=== PATIENT | male | born 1960 | race Caucasian/White ===

== ENCOUNTER 2018-01-18 13:50 | Inpatient (IN) | payer OTHER ==
[~2018-01-18] VITALS: Ht 180.3 cm; Wt 108.9 kg
[2018-03-15 13:44] LABS: BASOPHILS # (AUTO) 0.1 X10'3 (0-0.2); BASOPHILS % (AUTO) 0.9 % (0-1); EOSINOPHILS # (AUTO) 0.1 X10'3 (0-0.9); EOSINOPHILS % (AUTO) 1.7 % (0-6); LYMPHOCYTES # (AUTO) 2.2 X10'3 (1.1-4.8); LYMPHOCYTES % (AUTO) 26.9 % (21-51); MEAN CORPUSCULAR HGB CONC 35.1 % (33.0-36.5); MEAN CORPUSCULAR VOLUME 93.9 FL (78-98); MEAN PLATELET VOLUME 7.1 FL (7.4-10.4); MONOCYTES # (AUTO) 0.9 X10'3 (0-0.9); MONOCYTES % (AUTO) 10.6 % (2-12); NEUTROPHILS # (AUTO) 4.9 X10'3 (1.8-7.7); NEUTROPHILS % (AUTO) 59.9 % (42-75); PRE OP HEMATOCRIT 44.7 % (42.0-52.0); PRE OP HEMOGLOBIN 15.7 g/dL (14.0-17.9); PRE OP PLATELET COUNT 289 X10'3 (140-440); RED BLOOD COUNT 4.76 X10'6 (4.70-6.10); RED CELL DISTRIBUTION WIDTH 13.1 % (11.5-14.5)
[2018-03-15 13:53] LABS: ALBUMIN 3.8 G/DL (3.4-5.0); ALKALINE PHOSPHATASE 87 IU/L (46-116); BLOOD UREA NITROGEN 16 MG/DL (7-18); BUN/CREATININE RATIO 12.8 (5.4-32.0); CALCIUM 9.5 MG/DL (8.5-10.1); CHLORIDE 105 MMOL/L (99-107); CREATININE 1.25 MG/DL (0.60-1.10); PRE OP ALT 51 U/L (30-65); PRE OP ANION GAP 11 (8-16); PRE OP AST 36 U/L (10-37); PRE OP BILIRUB, TOTAL 0.4 MG/DL (0.0-1.0); PRE OP GLUCOSE 162 MG/DL (70-104); PRE OP POTASSIUM 3.4 MMOL/L (3.4-5.1); PRE OP SODIUM 143 MMOL/L (135-145); TOTAL PROTEIN 7.8 G/DL (6.4-8.2); eGFR 60 ML/MIN
[2018-03-15] MEDS ORDERED: ASPI81TA52 PO (15:17)
[2018-03-22] MEDS ORDERED: LOSA1TAB39 PO (13:43)
[2018-03-23] VITALS (14 sets, daily range): BP systolic 94–131; BP diastolic 55–81
[2018-03-23] MEDS ORDERED: ringers solution, lacted 1,000 ML IV SCH ×2 (05:00→09:53)
[2018-03-23] MEDS ORDERED: vancomycin inj 1,500 MG in normal saline 300ml IV soln IV ONE (05:30)
[2018-03-23] MEDS ORDERED: famotidine 20mg tablet PO ONE (05:30)
[2018-03-23] MEDS ORDERED: ceFAZolin inj. 2,000 MG in dextrose 5%-water 100 ML IV ONE (05:30)
[2018-03-23] MEDS ORDERED: LIDOcaine 1% (10mg/ml) 2ml vial ONE (05:36)
[2018-03-23] MEDS ORDERED: ketorolac trometh. 30mg/ml inj. ONE (07:01)
[2018-03-23] MEDS ORDERED: ROPIVAcaine 0.5% (5mg/ml) 30ml vial ONE (07:01)
[2018-03-23] MEDS ORDERED: vancomycin 1,000mg inj ONE (07:01)
[2018-03-23] MEDS ORDERED: tranexamic acid inj. 1,100 MG in normal saline 100ml IV soln 89 ML IV ONE ×2 (08:00→09:00)
[2018-03-23] MEDS ORDERED: midazolam 2 mg/2 ml injection ONE (08:48)
[2018-03-23] MEDS ORDERED: fentaNYL/PF 50MCG/1 ML 2ML syringe ONE (08:48)
[2018-03-23] MEDS ORDERED: propofol inj 20 ML IV ONE ×2 (08:52→10:06)
[2018-03-23] MEDS ORDERED: LIDOcaine 2% (20mg/ml) 5ml vial ONE (08:52)
[2018-03-23] MEDS ORDERED: sevoflurane 250ml liquid IH ONE (09:06)
[2018-03-23] MEDS ORDERED: ondansetron/PF 4mg/2ml inj IV PRN ×2 (09:55→11:40)
[2018-03-23] MEDS ORDERED: fentaNYL/PF 50MCG/1 ML 2ML syringe IV PRN ×2 (09:55)
[2018-03-23] MEDS ORDERED: morphine 4 MG/ML inj SYRINge IV PRN ×2 (09:55)
[2018-03-23] MEDS ORDERED: hydrALAZINE 20mg/ml inj. IV PRN (09:55)
[2018-03-23] MEDS ORDERED: labetalol 20mg/4ml (5mg/ml) syringe IV PRN (09:55)
[2018-03-23] MEDS ORDERED: morphine 10mg/ml inj. ONE (11:15)
[2018-03-23] MEDS ORDERED: potassium cl 20mEq in 1/2 NS 1,000 ML IV SCH (11:37)
[2018-03-23] MEDS ORDERED: acetaminophen 325mg tablet PO PRN (11:40)
[2018-03-23] MEDS ORDERED: oxyCODONE IR 5mg (immed. release) tablet PO PRN ×2 (11:40)
[2018-03-23] MEDS ORDERED: diphenhydrAMINE 25mg capsule PO PRN ×2 (11:40)
[2018-03-23] MEDS ORDERED: HYDROmorphone 1 mg/ml syringe IV PRN ×2 (11:40)
[2018-03-23] MEDS ORDERED: bisacodyl 10mg suppository rectal RC PRN (11:40)
[2018-03-23] MEDS ORDERED: magnesium hydroxide 30ml (MOM) UD suspension PO PRN (11:40)
[2018-03-23] MEDS ORDERED: gabapentin 300mg capsule PO SCH (13:00)
[2018-03-23] MEDS ORDERED: acetaminophen 325mg tablet PO SCH (14:00)
[2018-03-23] MEDS ORDERED: ketorolac tromethamine 15mg/ml inj. IV SCH (14:00)
[2018-03-23] MEDS ORDERED: tranexamic acid inj. 1,100 MG in normal saline 100ml IV soln 100 ML IV ONE (15:00)
[2018-03-23] MEDS ORDERED: ceFAZolin 1GM/D5W- ADD-VANTAGE 50 ML IV SCH (16:00)
[2018-03-23] MEDS ORDERED: vancomycin/NS 1 GM ADD-VANTAGE 250 ML IV SCH (20:00)
[2018-03-23] MEDS ORDERED: sennosides 8.6mg tablet PO SCH (21:00)
[2018-03-24] MEDS ORDERED: aspirin 81mg tablet.DR PO SCH (08:00)
[2018-03-24] MEDS ORDERED: aspirin 325mg tablet PO SCH (08:30)
[2018-03-24] MEDS ORDERED: celeCOXIB 100mg capsule PO SCH (20:00)
[2018-03-25] MEDS ORDERED: acetaminophen 325mg tablet PO PRN (11:40)
== END 2018-03-23 15:20 | disposition home or self-care (01) | DRG 483 ==
LOC: PAS IN 03-23 05:22 → EDSTATUS 03-23 07:30 → ORTHO 4S 03-23 12:23
PROVIDERS: ADMIT Orthopaedic Surgery; ATTEND Orthopaedic Surgery
PROC: 0LS30ZZ Reposition Right Upper Arm Tendon, Open Approach (ICD-10-PCS; 2018-03-23)
PROC: 3E0T3BZ Introduction of Anesthetic Agent into Peripheral Nerves and Plexi, Percutaneous Approach (ICD-10-PCS; 2018-03-23)
PROC: 0RRJ00Z Replacement of Right Shoulder Joint with Reverse Ball and Socket Synthetic Substitute, Open Approach (ICD-10-PCS; principal; 2018-03-23 09:06)
DX: M19.011 Primary osteoarthritis, right shoulder (principal); I10 Essential (primary) hypertension; K21.9 Gastro-esophageal reflux disease without esophagitis; M75.121 Complete rotator cuff tear or rupture of right shoulder, not specified as traumatic; M75.21 Bicipital tendinitis, right shoulder; Z79.899 Other long term (current) drug therapy
CPT/HCPCS: 36415; 80053; 82948; 85025; 87070; A4565; A7000; J0690; J1885; J2001; J2250; J2270; J2704; J2795; J3010; J3370; J3490; J7030; J7040; J7060; J7120

== ENCOUNTER 2025-08-08 15:00 | Outpatient (CLI) | payer MEDICARE, MEDICAID ==
[~2025-08-08 15:00] MED LIST: ASPI81TA52 PO; LOSA1TAB39 PO
--- NOTE | 2025-08-08 16:11 | RADIOLOGY REPORT ---
EXAM: CT CT CHEST LOW DOSE INDICATION: ENCOUNTER FOR OTHER SPECIFIED SPECIAL EXAMINATIONS TECHNIQUE: Low-dose noncontrast CT of the lungs have been obtained. All CT scans at this facility use dose modulation, iterative reconstruction, and/or weight based dosing when appropriate to reduce radiation dose to as low as reasonably achievable. COMPARISON: None FINDINGS: LOWER NECK: Unremarkable LYMPH NODES/MEDIASTINUM: No abnormal lymph nodes by CT size criteria CARDIOVASCULAR: Normal cardiac size. No pericardial effusion. No aneurysmal dilatation of the great vessels. Coronary artery calcifications. UPPER ABDOMEN: Limited evaluation secondary to photon starvation. Unremarkable. MUSCULOSKELETAL: No acute fracture or aggressive focal osseous lesion. Right shoulder arthroplasty. CHEST WALL: Unremarkable. LUNG/PLEURAL SPACE: No consolidation, suspicious focal airspace opacity, or suspicious nodules. No pleural effusion or pneumothorax. Biapical pleural- parenchymal scarring. pleural-parenchymal scarring. IMPRESSION: 1. No CT evidence of an acute intrathoracic process. LUNG-RADS: 1- Negative RECOMMENDATION: Annual low dose lung screening CT is recommended for 15 years after smoking cessation or until age 77. CITATION: Lung cancer screening categorization and recommendations per [employer] Lung-RADS Version 1.0 (http://www.acr.org/Quality- Safety/Resources/LungRADS).
[2025-08-12] MEDS ORDERED: METO-411 PO (16:07)
== END 2025-08-08 23:59 | disposition home or self-care (01) ==
LOC: RAD 15:00
PROVIDERS: ATTEND Nurse Practitioner Family
DX: Z12.2 Encounter for screening for malignant neoplasm of respiratory organs (principal); Z01.89 Encounter for other specified special examinations; I25.10 Atherosclerotic heart disease of native coronary artery without angina pectoris; J98.4 Other disorders of lung; Z96.611 Presence of right artificial shoulder joint; Z87.891 Personal history of nicotine dependence
CPT/HCPCS: 71271

== ENCOUNTER 2025-08-19 10:06 | Day surgery (SDC) | payer MEDICARE, MEDICAID ==
--- NOTE | 2025-08-12 14:36 | ELECTROCARDIOGRAPH REPORT ---
[facility] Test Date: 2025-08-12 Test Time: 15:34:34 Pat Name: TERESITA GILES Department: [facility]-PRE-OP Patient ID: [id number] Room: Gender: M Cath Lab Radiological Technologist: jorge a : 1960 Requested By: DENISE MARSHALL Order Number: [id number] Reading MD: Dr. JOSEPH Siegel Measurements Intervals Crystal Rate: 62 P: 30 AK: 141 QRS: 54 QRSD: 119 T: 56 QT: 434 QTc: 441 Interpretive Statements Sinus rhythm Nonspecific intraventricular conduction delay Electronically Signed On 08-12-2025 18:03:[address] JOSEPH Siegel Please click the below link to view image of tracing.
[2025-08-12 14:44] LABS: MEAN PLATELET VOLUME 7.1 FL (7.4-10.4); PRE OP HEMATOCRIT 42.9 % (42.0-52.0); PRE OP HEMOGLOBIN 14.9 g/dL (14.0-17.9); PRE OP PLATELET COUNT 286 X10'3 (140-440); PRE OP WHITE BLOOD COUNT 9.2 10'3 (4.8-10.8); RED CELL DISTRIBUTION WIDTH 13.7 % (11.5-14.5)
[2025-08-12 15:00] LABS: CREATININE 1.02 MG/DL (0.60-1.10); PRE OP ALT 47 U/L (30-65); PRE OP ANION GAP 8 (8-16); PRE OP AST 29 U/L (10-37); PRE OP BILIRUB, TOTAL 0.3 MG/DL (0.0-1.0); PRE OP GLUCOSE 105 MG/DL (70-104); PRE OP POTASSIUM 3.8 MMOL/L (3.4-5.1); PRE OP SODIUM 142 MMOL/L (135-145); TOTAL CARBON DIOXIDE 28.7 MMOL/L (24-32); eGFR 73 ML/MIN
[2025-08-19] VITALS (12 sets, daily range): BP systolic 128–148; BP diastolic 67–89; PULSE 58–89; RESP 12–16; TEMP 96.8; O2SAT 97–100
[~2025-08-19] VITALS: Ht 180.3 cm; Wt 104.2 kg
[2025-08-19] MEDS: ceFAZolin 2gm/dext,iso 50mL 50 ML IV ONE (05:30)
[~2025-08-19 10:06] MED LIST changes: -ASPI81TA52 PO; +DOCUMENT DATE & TIME OF BETA-BLOCKER PO ONE; +METO-411 PO
[2025-08-19] MEDS: ringers solution, lacted 1,000 ML IV SCH (10:29)
[2025-08-19] MEDS ORDERED: BUPIVAcaine 2.5mg/ml inj 50ml vial (contains preservative) ONE (13:14)
[2025-08-19] MEDS ORDERED: LIDOcaine 1% 30ml preserv. free vial ONE (13:15)
[2025-08-19] MEDS ORDERED: midazolam 1 mg/ML 2ml injection ONE (13:16)
[2025-08-19] MEDS ORDERED: HYDROcodone/acetaminophen 5mg/325mg tablet PO PRN (13:20)
[2025-08-19] MEDS ORDERED: morphine 4 MG/ML inj SYRINge IV PRN (13:25)
[2025-08-19] MEDS ORDERED: HYDROmorphone/PF 0.2 MG/ML SYRINGE IV PRN ×2 (13:25)
[2025-08-19] MEDS ORDERED: ondansetron/PF 4mg/2ml inj IV PRN (13:25)
[2025-08-19] MEDS ORDERED: hydrALAZINE 20mg/ml inj. IV PRN (13:25)
[2025-08-19] MEDS ORDERED: labetalol 20mg/4ml (5mg/ml) syringe IV PRN (13:25)
[2025-08-19] MEDS ORDERED: ringers solution, lacted 1,000 ML IV SCH (13:25)
[2025-08-19] MEDS ORDERED: fentaNYL /PF 50mcg/ml 5ml ampule ONE (13:38)
[2025-08-19] MEDS ORDERED: dexamethasone sod phosphate 4mg/ml inj. ONE (13:43)
[2025-08-19] MEDS ORDERED: propofol inj 20 ML IV ONE (13:44)
[2025-08-19] MEDS ORDERED: rocuronium 10mg/ml inj IV ONE (13:44)
[2025-08-19] MEDS ORDERED: LIDOcaine 2% (20mg/ml) 5ml vial ONE (13:44)
[2025-08-19] MEDS ORDERED: ondansetron/PF 4mg/2ml inj ONE (13:44)
[2025-08-19] MEDS: LIDOcaine 1% 30ml preserv. free vial IJ ONE (13:45)
[2025-08-19] MEDS: BUPIVAcaine/PF 2.5 mg/ml (0.25%) 30ml vial IJ ONE (13:45)
[2025-08-19] MEDS: acetaminophen 1,000mg/100ml IV 100 ML IV PRN (15:16)
[2025-08-19] MEDS ORDERED: oxyCODONE/APAP 5-325mg tablet PO PRN (15:30)
--- NOTE | 2025-08-19 15:33 | OPERATIVE REPORT ---
Operative Report Providers to CC CC: BRAD MARSHALL ~ Date of Procedure: Aug 19, 2025 Pre-Operative Diagnosis: Umbilical hernia, right inguinal hernia Post-Operative Diagnosis SAME as PRE-Op Procedure Performed 1 cm umbilical hernia repair Robotic assisted, laparoscopic right inguinal hernia repair with mesh Surgeon: Jaylon Marshall MD FACS Reflexologist None Anesthesiologist: Angelo Josehp Type of Anesthesia: General Findings: Very, very, very large indirect right inguinal hernia 1 cm umbilical hernia Thick band from the right medial umbilical fold to a loop of intestine that was herniated into the right inguinal canal (likely adhesive band, however, 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 Description of Procedure: Patient was brought to the operating room and identified by the nursing staff and the attending physician. Patient was placed supine and general anesthesia was induced. Patient's abdomen was prepped and draped in standard sterile fashion. Preoperative antibiotics were given. Supraumbilical incision was made to allow for standard Whitehead entry technique. During dissection, a 1 cm umbilical hernia was encountered. Contents were reduced and the fascial edges freshened. Defect was used for Whitehead port placement. Laparoscope was inserted after insufflation. Bilateral, 8.5 mm robotic trochars were placed under laparoscopic guidance following administration of local anesthetic. The da Radha robotic arm was docked to the patient and instruments placed intra-abdominally under laparoscopic visualization. The left hemipelvis was examined and showed no evidence of left inguinal hernia. There was what appeared to be a thick fibrous adhesive band attached to a loop of intestine within the hernia sac. This was anchored to the abdominal wall, right at the medial umbilical fold on the right. This appeared to be a very thick adhesive band, however, when it was divided near the medial umbilical fold, it appeared almost tubular. A clip was placed on the anterior abdominal wall and a Humalog clip was placed proximal to the attachment on the small intestine. Adhesive band was retrieved and marked as urachal remnant, however, it is most likely given the anatomy and adhesive band. This was sent for pathological confirmation. Attention was then turned to the right inguinal hernia. This was quite large. Preperitoneal flap was created and carried down to the symphysis pubis. The retropubic space of [place] was developed and the bladder swept medially. Dissection was carried out laterally until an indirect inguinal hernia sac was identified. This was very, very large in size, extending deep into the right hemiscrotum. Hernia sac was completely mobilized and reduced. Peritoneum was completely dissected away from the cord structures The critical view of the myopectineal orifice was achieved. Dissection was carried out laterally to allow space for mesh deployment. An extra-large right Dextile mesh and suture was passed intra-abdominally. Mesh was laid in the preperitoneal space covering both indirect, direct, and potential femoral and obturator hernias. Mesh laid without wrinkles or folds. 3 tacking sutures using 0 Ethibond were used to fix the mesh at the symphysis pubis, rectus abdominis, and just anterior to the anterior superior iliac spine. The peritoneal rent was then closed with running, 2/0, absorbable locking suture. [place] were retrieved. Abdomen was deflated and secondary trochars removed. Fascia at the umbilical port site was closed with 0 Vicryl sutures. Skin incisions were closed with 4-0 Monocryl sutures in a subcuticular fashion. Sterile dressings were applied. Patient was awakened and taken to the postanesthesia care unit in stable condition. Counts repoted as correct: Yes JAYLON MARSHALL MD Aug 19, 2025 15:33
== END 2025-08-19 17:04 | disposition home or self-care (01) ==
LOC: PAS 10:06
PROVIDERS: ATTEND Surgery
DX: K40.90 Unilateral inguinal hernia, without obstruction or gangrene, not specified as recurrent (principal); K42.9 Umbilical hernia without obstruction or gangrene; I45.4 Nonspecific intraventricular block; I10 Essential (primary) hypertension; R73.09 Other abnormal glucose; Z98.890 Other specified postprocedural states; Z80.1 Family history of malignant neoplasm of trachea, bronchus and lung; Z83.3 Family history of diabetes mellitus
CPT/HCPCS: 36415; 49591; 49650; 80053; 82948; 85025; 93005; A4215; A4618; C1781; J0131; J1100; J1171; J2003; J2250; J2405; J2704; J3010; J3490; J7030; J7120; Z7506; Z7508; Z7512; Z7610